=== PATIENT | female | born 1935 | race Caucasian/White ===

== ENCOUNTER 2021-05-19 19:48 | Inpatient (IN) ==
[2021-05-19] MEDS ORDERED: DILTIAZEM 25 MG/5 ML VIAL IV ONE (19:57)
[2021-05-19] MEDS ORDERED: DILTIAZEM 100 MG VIAL.ADD IV ONE (19:57)
[2021-05-19] MEDS ORDERED: ASPIRIN 325 MG TABLET PO STA (20:01)
[2021-05-19] MEDS ORDERED: DILTIAZEM 50 MG/10 ML VIAL IV STA (20:21)
[2021-05-19] MEDS ORDERED: DILTIAZEM INJ 100 MG in SODIUM CHLORIDE 0.9% 100 ML IV SCH (20:30)
[2021-05-19 20:51] LABS: Basophils % 0.1 % (0.0-0.8); Eosinophils % 0.1 % (0.00-10.9); Hematocrit 38.9 VOL% (35.7-47.0); Hemoglobin 13.1 GM/DL (12.0-16.0); Immature Granulocytes % 0.6 %; Immature Granulocytes Absolute 0.06 #; Lymphocytes # 0.3 10*3/uL (1.4-4.0); Lymphocytes % 2.5 % (21.3-54.2); Mean Corpuscular HGB Conc 33.7 GM/DL (32-36); Mean Corpuscular Volume 88.6 FL (87-102); Mean Platelet Volume 9.3 FL (9.6-12.0); Monocytes % 5.4 % (1.7-12.7); Neutrophils % 91.3 % (38.7-73.9); Platelet Count 294 T/CUMM (130-400); Red Blood Count 4.39 MC/CUMM (3.8-5.5); Red Cell Distribution Width 13.1 % (9.3-17.3); White Blood Count 10.2 T/CUMM (4-12)
[2021-05-19 21:11] LABS: Partial Thromboplastin Time 25.1 SECS (23.8-32.1)
[2021-05-19 21:11] LABS: Bacteria,Urine Occasional /HPF (Few); Bilirubin,Urine Negative (Negative); Blood, Urine Moderate mg/dL (Negative); Glucose,Urine (UA) Negative (Negative); Hyaline Casts,Urine 1 /LPF (0-3); Ketones,Urine Negative (Negative); Mucus,Urine Occasional /LPF (Occasional); Nitrite,Urine Negative (Negative); Protein,Urine 30 MG/DL; Squamous Epithelial Cell,Urine Occasional /HPF (0-10); Urine Appearance Slightly Hazy (Clear); Urine Color Yellow (Yellow); Urine Specific Gravity 1.011 (1.001-1.035)
[2021-05-19 21:25] LABS: Albumin 3.5 G/DL (3.4-5.0); Bilirubin,Total 2.4 MG/DL (0.20-1.00); Calcium 9.1 MG/DL (8.5-10.1); Osmolality,Calculated 277.7 MOS/KG (273-304); Potassium 3.4 MMOL/L (3.5-5.1); Total Protein 7.2 G/DL (6.4-8.2)
[2021-05-19 21:27] LABS: Band Neutrophils 5 % (0-10); Lymphocytes 1 % (20-55); Platelet Estimate Adequate; Segmented Neutrophils 93 % (50-85); Total Cells Counted 100
[2021-05-19] MEDS ORDERED: POTASSIUM CHLORIDE 20 MEQ TABLET PO STA (21:55)
[2021-05-19] MEDS ORDERED: MORPHINE 2 MG/1 ML SYRINGE IV PRN (22:34)
[2021-05-19] MEDS ORDERED: ACETAMINOPHEN 325 MG TABLET PO PRN (22:34)
[2021-05-19] MEDS ORDERED: ONDANSETRON 4 MG/2 ML VIAL IV PRN (22:34)
[2021-05-19] MEDS ORDERED: DEXTROSE 50% 25 GM/50 ML SYRINGE IV PRN (22:34)
[2021-05-19] MEDS ORDERED: GLUCAGON 1 MG VIAL IM PRN (22:34)
[2021-05-19] MEDS: LACTATED RINGERS 1,000 ML IV SCH (23:00)
[2021-05-19] MEDS: APIXABAN 5 MG TABLET PO SCH (23:01)
[2021-05-19] MEDS ORDERED: POTASSIUM CHLORIDE 20 MEQ TABLET PO PRN (23:26)
[2021-05-19] MEDS: clonazePAM 0.5 MG TABLET PO SCH (23:46)
[2021-05-19] MEDS: rOPINIRole 1 MG TABLET PO SCH (23:46)
[2021-05-20 00:08] LABS: Hepatitis B Core IgM Quant 0.15 Index; Hepatitis B Surface Ag Quant < 0.10 Index; Hepatitis B Surface Ag Result Non-Reactive (NonReactive); Hepatitis C Virus Ab Quant 0.04 Index; Hepatitis C Virus Ab Result Non-Reactive (NonReactive)
[2021-05-20] MEDS ORDERED: ASPIRIN EC 325 MG TABLET PO SCH (09:00)
[2021-05-20] MEDS ORDERED: ROPINIROLE 2 MG PO SCH (09:00)
[2021-05-20 13:51] LABS: Basophils % 0.2 % (0.0-0.8); Eosinophils % 0.2 % (0.00-10.9); Hemoglobin 11.1 GM/DL (12.0-16.0); Immature Granulocytes % 0.5 %; Immature Granulocytes Absolute 0.05 #; Lymphocytes # 0.7 10*3/uL (1.4-4.0); Lymphocytes % 6.5 % (21.3-54.2); Mean Corpuscular HGB Conc 32.6 GM/DL (32-36); Mean Corpuscular Volume 90.2 FL (87-102); Mean Platelet Volume 9.6 FL (9.6-12.0); Monocytes % 5.7 % (1.7-12.7); Neutrophils % 86.9 % (38.7-73.9); Platelet Count 253 T/CUMM (130-400); Red Blood Count 3.77 MC/CUMM (3.8-5.5); Red Cell Distribution Width 13.4 % (9.3-17.3); White Blood Count 10.5 T/CUMM (4-12)
[2021-05-20 14:09] LABS: Lymphocytes 4 % (20-55); Segmented Neutrophils 92 % (50-85); Total Cells Counted 100
[2021-05-20 14:10] LABS: Ovalocytes Few; Platelet Estimate Normal
[2021-05-20] MEDS ORDERED: NITROGLYCERIN SL 0.4 MG TABLET SL PRN (14:45)
[2021-05-20 15:26] LABS: Thyroid Stimulating Hormone 0.845 uIU/ml (0.358-3.74)
[2021-05-20] MEDS: METOPROLOL TARTRATE 25 MG TABLET PO SCH ×2 (16:30→20:49)
[2021-05-20 16:37] LABS: Calcium 8.6 MG/DL (8.5-10.1)
[2021-05-20 16:38] LABS: Albumin 2.7 G/DL (3.4-5.0); Bilirubin,Total 3.1 MG/DL (0.20-1.00); Osmolality,Calculated 280.5 MOS/KG (273-304); Potassium 4.3 MMOL/L (3.5-5.1); Total Protein 5.5 G/DL (6.4-8.2)
[2021-05-20] MEDS: SUCRALFATE 1 GM TABLET PO SCH ×2 (17:45→20:50)
[2021-05-20] MEDS: APIXABAN 5 MG TABLET PO SCH ×2 (17:46→20:49)
[2021-05-20] MEDS: rOPINIRole 1 MG TABLET PO SCH ×2 (17:46→20:49)
[2021-05-20] MEDS: LACTATED RINGERS 1,000 ML IV SCH ×2 (17:46→22:49)
[2021-05-20 17:47] LABS: Albumin 2.8 G/DL (3.4-5.0); Bilirubin,Total 3.6 MG/DL (0.20-1.00); Calcium 8.5 MG/DL (8.5-10.1); Osmolality,Calculated 277.5 MOS/KG (273-304); Potassium 4.3 MMOL/L (3.5-5.1); Total Protein 6.4 G/DL (6.4-8.2)
[2021-05-20] MEDS: clonazePAM 0.5 MG TABLET PO SCH (20:49)
[2021-05-20] MEDS ORDERED: ATORVASTATIN 40 MG TABLET PO SCH (21:00)
[2021-05-20] MEDS ORDERED: clonazePAM 0.5 MG TABLET PO SCH (21:00)
[2021-05-20] MEDS ORDERED: METOPROLOL TARTRATE 25 MG TABLET PO SCH (21:00)
[2021-05-21 06:05] LABS: Basophils % 0.2 % (0.0-0.8); Eosinophils # 0.3 10*3/uL (0.0-0.87); Eosinophils % 3.9 % (0.00-10.9); Hematocrit 32.1 VOL% (35.7-47.0); Hemoglobin 10.4 GM/DL (12.0-16.0); Immature Granulocytes % 0.5 %; Immature Granulocytes Absolute 0.03 #; Lymphocytes # 0.7 10*3/uL (1.4-4.0); Lymphocytes % 10.2 % (21.3-54.2); Mean Corpuscular HGB Conc 32.4 GM/DL (32-36); Mean Corpuscular Volume 91.7 FL (87-102); Mean Platelet Volume 10.1 FL (9.6-12.0); Monocytes % 4.9 % (1.7-12.7); Neutrophils % 80.3 % (38.7-73.9); Platelet Count 216 T/CUMM (130-400); Red Cell Distribution Width 13.2 % (9.3-17.3); White Blood Count 6.4 T/CUMM (4-12)
[2021-05-21 06:21] LABS: INR 1.1; PT Patient Result 12.4 SECS (10.5-12.0); Partial Thromboplastin Time 35.4 SECS (23.8-32.1)
[2021-05-21 06:32] LABS: Calcium 8.2 MG/DL (8.5-10.1); Osmolality,Calculated 269.1 MOS/KG (273-304); Potassium 3.8 MMOL/L (3.5-5.1)
[2021-05-21 06:42] LABS: Albumin 2.5 G/DL (3.4-5.0); Bilirubin,Direct 1.03 MG/DL (0.0-0.20); Bilirubin,Indirect 1.4 MG/DL (0.0-1.0); Bilirubin,Total 2.4 MG/DL (0.20-1.00); Total Protein 5.1 G/DL (6.4-8.2)
[2021-05-21] MEDS ORDERED: DILTIAZEM CD 180 MG CAPSULE PO SCH (09:00)
[2021-05-21] MEDS ORDERED: ASPIRIN EC 81 MG TABLET PO SCH (09:00)
[2021-05-21] MEDS: rOPINIRole 1 MG TABLET PO SCH (10:01)
[2021-05-21] MEDS: METOPROLOL TARTRATE 25 MG TABLET PO SCH (10:01)
[2021-05-21] MEDS: SUCRALFATE 1 GM TABLET PO SCH (10:02)
[2021-05-21] MEDS: APIXABAN 5 MG TABLET PO SCH (10:02)
[2021-05-21] MEDS: LACTATED RINGERS 1,000 ML IV SCH (10:18)
[2021-05-21 11:26] VITALS: BP 132/76
== END 2021-05-21 16:17 | disposition home or self-care (01) | DRG 309 ==
LOC: N.ED 19:48 → N.EDINP 19:48 → SUATTDRO 22:34 → N.TELEN 05-20 17:07
PROVIDERS: ADMIT Internal Medicine; ATTEND Internal Medicine